=== PATIENT | female | born 1940 | race Caucasian/White ===

== ENCOUNTER 2021-03-18 15:16 | Emergency (ER) | payer OTHER ==
[~2021-03-18] VITALS: Ht 162.5 cm; Wt 88.5 kg
[~2021-03-18 15:16] MED LIST: ANASTROZOLE1 M1 PO; CENTRUM SILVER1 EAC1 PO; FOSAMAX70 M1 PO; HYDROCODONE BIT1 T11 PO; PAROXETINE20 MG PO; PRAVACHOL20 MG PO
[2021-03-18] MEDS ORDERED: LEXAPRO10 MG PO (15:30)
[2021-03-18 17:37] LABS: BASO % 0.2 % (0.0-1.0); HEMATOCRIT 38.6 % (37.0-47.0); LYMPH % 7.7 % (27.0-41.0); MEAN CELL VOLUME 90.2 fl (81.0-99.0); MEAN CORPUSCULAR HGB 28.7 pg (27.0-31.0); MEAN CORPUSCULAR HGB CONC 31.9 g/dl (33.0-37.0); MEAN PLATELET VOLUME 9.6 fl (9.6-12.3); MONO % 7.2 % (3.0-9.0); NEUT # 11.3 10*3/uL (2.3-7.9); NEUT % 84.5 % (47.0-73.0); PLATELET COUNT AUTOMATED 338 10*3/uL (130-400); RED BLOOD COUNT 4.28 10*6/uL (4.10-5.10); RED CELL DISTRI WIDTH 12.4 % (0-14.5); WHITE BLOOD COUNT 13.3 10*3/uL (4.8-10.8)
[2021-03-18 17:52] LABS: ALBUMIN 2.4 gm/dl (3.1-4.5); ALKALINE PHOSPHATASE 100 U/L (45-117); BUN 16 mg/dl (7-24); CHLORIDE 101 mmol/L (98-107); CREATININE 0.79 mg/dL (0.55-1.02); LIPASE 53 U/L (73-393); POTASSIUM 3.9 mmol/L (3.5-5.1); SGOT/AST 19 IU/L (3-35); SGPT/ALT 24 U/L (12-78); SODIUM 137 mmol/L (136-145); TOTAL PROTEIN 7.3 gm/dL (6.4-8.2)
[2021-03-18 19:07] LABS: BILIRUBIN Negative (Negative); BLOOD 1+ (Negative); CLARITY Cloudy (Clear); COLOR Yellow (Yellow); GLUCOSE Negative (Negative); KETONE 2+ (Negative); LEUKO ESTERASE 2+ (Negative); NITRITE Negative (Negative); SPECIFIC GRAVITY 1.015 (1.001-1.030); UROBILINOGEN 0.2 E.U./dl (0.0-1.0)
[2021-03-18 19:18] LABS: BACTERIA 2+; RBC 0-2 rbc/hpf (0-2)
== END 2021-03-19 07:54 | disposition short-term general hospital (02) ==
LOC: ED 15:16
PROVIDERS: Physician Assistant
DX: K56.609 Unspecified intestinal obstruction, unspecified as to partial versus complete obstruction (principal)